=== PATIENT | female | born 1990 | race Caucasian/White ===

== ENCOUNTER 2024-07-27 09:11 | Outpatient (CLI) | payer OTHER, SELFPAY ==
--- NOTE | 2024-07-27 10:22 | W.ANESCHARGE ---
Anesthesia Charges Start Date/Time Anesthesia Start Date: 07/27/24 Anesthesia Start Time: 10:05 Stop Date/Time Anesthesia Stop Date: 07/27/24 Anesthesia Stop Time: 10:26
--- NOTE | 2024-07-27 10:29 | W.ANESCHARGE ---
Anesthesia Charges Start Date/Time Anesthesia Start Date: 07/27/24 Anesthesia Start Time: 10:05 Stop Date/Time Anesthesia Stop Date: 07/27/24 Anesthesia Stop Time: 10:26
== END 2024-07-27 09:12 | disposition home or self-care (01) ==
LOC: OP CLINIC 09:17
PROVIDERS: Visit Provider Internal Medicine Gastroenterology
DX: R10.13 Epigastric pain (principal); R19.7 Diarrhea, unspecified; R76.8 Other specified abnormal immunological findings in serum; K21.00 Gastro-esophageal reflux disease with esophagitis, without bleeding
CPT/HCPCS: 00731; 43239; 88305; J2704